=== PATIENT | female | born 1955 | race Caucasian/White ===

== ENCOUNTER → 2018-03-20 08:15 | Outpatient (CLI) | payer OTHER, SELFPAY ==
--- NOTE | 2018-03-20 08:18 | MM_ITS ---
MM Dig screening mamm BI w/CAD CAD Screening INDICATION: Screening for breast cancer ORDERING PHYSICIAN: Patel Romero PATIENT AGE: 63 years COMPARISON: 10/25/2016, 03/11/2015, 11/22/2013 TECHNIQUE: Standard CC and MLO images were obtained. R2 CAD reviewed. FINDINGS: Average fibroglandular tissue. No malignant mass or malignant appearing microcalcification. Benign-appearing calcifications are noted in the medial aspect of the left breast IMPRESSION: No change with no evidence of malignancy BI-RADS Category: 2 Benign Finding(s) RECOMMENDED FOLLOW-UP: 1YR - 1 YEAR FOLLOW-UP (A letter has been sent to the patient regarding results of the study.)
== END ==
PROVIDERS: Family Provider Family Medicine; PCP Family Medicine; Visit Provider Family Medicine
DX: Z12.31 Encounter for screening mammogram for malignant neoplasm of breast (principal)
CPT/HCPCS: 77067

== ENCOUNTER → 2019-04-25 16:41 | Outpatient (CLI) | payer OTHER, SELFPAY ==
--- NOTE | 2019-04-25 16:46 | MM_ITS ---
MM Dig screening mamm BI w/CAD CAD Screening COMPARISON: Digital mammograms with CAD 03/20/2018 and 10/25/2016 INDICATION: There is no personal or family history of breast cancer TECHNIQUE: Standard CC and MLO images were obtained. R2 CAD reviewed. FINDINGS: Scattered fibroglandular densities are seen throughout both breast on a background of fatty breast parenchyma. There is a mole marker left breast. There is benign-appearing calcification in each breast. There is no suspicious lesion and there are no suspicious microcalcifications. IMPRESSION: Fibrofatty parenchyma with no suspicious lesion seen BI-RADS Category: 2 Benign Finding(s) RECOMMENDED FOLLOW-UP: 1YR - 1 YEAR FOLLOW-UP (A letter has been sent to the patient regarding results of the study.)
== END ==
PROVIDERS: PCP Family Medicine; Referring Provider Family Medicine; Visit Provider Family Medicine
DX: Z12.31 Encounter for screening mammogram for malignant neoplasm of breast (principal)
CPT/HCPCS: 77067

== ENCOUNTER → 2019-07-10 15:12 | Outpatient (CLI) | payer OTHER, SELFPAY ==
--- NOTE | 2019-07-10 15:25 | US_ITS ---
PROCEDURE: US THYROID CLINICAL INDICATION: MASS Follow-up thyroid nodules COMPARISON: THY US THYROID from 10/28/2016 FINDINGS: Right lobe: 4 x 1.1 x 1.6 cm. 4 mm slightly hypoechoic nodules present in the mid aspect of the right lobe unchanged. 3 mm hypoechoic nodules nodule is present in the lower lobe on the right. 3 mm slightly hypoechoic nodules present in the lower pole near the isthmus unchanged. Prior left lobectomy Additional findings: IMPRESSION: Prior left thyroid lobectomy. There are 3 nodules on the right to which are unchanged. One nodule which appears cystic is new. These are low level of suspicion for malignancy. Dictated by: Matt Adhikari MD 07/10/2019 17:53 <Electronically signed by Matt Adhikari MD in [facility]> 07/10/2019 17:53
== END ==
PROVIDERS: PCP Family Medicine; Visit Provider Family Medicine
DX: E04.1 Nontoxic single thyroid nodule
CPT/HCPCS: 76536

== ENCOUNTER → 2020-08-21 16:42 | Outpatient (CLI) | payer OTHER, SELFPAY ==
--- NOTE | 2020-08-21 16:46 | MM_ITS ---
PROCEDURE: MM DIG SCREENING MAMM BI W/CAD Digital Breast Tomosynthesis Included CLINICAL INDICATION: SCREENING There is no personal or family history of breast cancer. Patient currently is on estrogen. COMPARISON: MG DMSB DIG MAMM-SCREEN MISSY from 10/25/2016 MG SCBI MM Dig screening mamm BI w/CAD from 03/20/2018 MG DIG MAMM-SCREEN MISSY from 04/25/2019 TECHNIQUE: Standard CC and MLO images and 3D Tomosynthesis was obtained. R2 CAD reviewed. FINDINGS: Scattered fibroglandular densities are seen throughout both breast and the findings are bilateral and symmetrical. There is a mole marker on each breast. There is a tiny benign-appearing calcification left breast likely vascular. There is no suspicious lesion in either breast and no suspicious microcalcifications. IMPRESSION: Fibrofatty parenchyma with no suspicious lesions seen BI-RAD Category: 2 Benign Finding(s) FOLLOW-UP: 1YR 1 Year Follow-up (A letter has been sent to the patient regarding results of the study.) Dictated by: Dr. Nick Mccallum MD 08/24/2020 12:04 Dr. Nick Mccallum MD in [facility] 08/24/2020 12:04
== END ==
PROVIDERS: PCP Family Medicine; Visit Provider Family Medicine
DX: Z12.31 Encounter for screening mammogram for malignant neoplasm of breast (principal)
CPT/HCPCS: 77063; 77067

== ENCOUNTER → 2021-09-29 10:42 | Outpatient (CLI) | payer OTHER, SELFPAY ==
--- NOTE | 2021-09-29 10:45 | MM_ITS ---
PROCEDURE INFORMATION: Exam: MG Bilateral Screening 3D Mammography Exam date and time: 09/29/2021 10:45 AM Age: 66 years old Clinical indication: Screening mammogram TECHNIQUE: Imaging protocol: Bilateral screening tomosynthesis and 2D mammography including computer-aided detection (CAD) when performed. COMPARISON: 1. MG MM DIG SCREENING MAMM BI W/CAD 08/21/2020 4:56 PM 2. MG DIG MAMM-SCREEN MISSY 04/25/2019 4:50 PM 3. MG SCBI MM Dig screening mamm BI w/CAD 03/20/2018 8:41 AM 4. MG DMSB DIG MAMM-SCREEN MISSY 10/25/2016 4:57 PM FINDINGS: MAMMOGRAPHY: Breast composition: There are scattered areas of fibroglandular density. Mass: None. Architectural distortion: No new or suspicious architectural distortion. Calcifications: No new or suspicious calcifications are present Asymmetric density: No new or suspicious asymmetric density is present Skin thickening: None. Axillary adenopathy: None. IMPRESSION: No mammographic evidence of malignancy. Recommend annual screening mammography unless otherwise clinically indicated. ASSESSMENT: BI-RADS category 1: Negative
== END ==
PROVIDERS: PCP Family Medicine; Visit Provider Family Medicine
DX: Z12.31 Encounter for screening mammogram for malignant neoplasm of breast (principal)
CPT/HCPCS: 77063; 77067

== ENCOUNTER → 2021-12-03 06:44 | Outpatient (CLI) | payer OTHER, SELFPAY ==
--- NOTE | 2021-12-03 06:45 | CA_ITS ---
APPROVED REPORT EXAM: Comprehensive 2D, Doppler, and color-flow Echocardiogram Mussel Opener: Hilda Garcia RVT Ht: 5 ft 2 in Wt: 161lbs BSA: 1.74 BP: 180/88 mmHg Indications: CP,ABN EKG 2D Dimensions LVOT 2.01 cm (M/F) 1.5-2.5 LA Volume 30.10 mL LA Volume Index 17.30 mL/m2 (M/F) 16-34 M-Mode Dimensions RVDd 2.16 cm (0.9-2.6) LA Diam 3.38 cm (1.9-4.0) LVDd 3.89 cm (3.5-5.7) Ao Diam 2.40 cm (2.0-3.7) LVDs 1.31 cm (3.5-5.7) IVSd 0.83 cm (0.6-1.1) PWd 0.58 cm (0.6-1.1) EF (Teich) 93.60% FS 66.30% EDV (Teich) 65.50 mL TAPSE 1.41 (<1.7) ESV (Teich) 4.20 mL LV Diastology E Decel Time 150.00 (160-240 msec) E/A Ratio 0.7 MED E' 4.70 (< 7 cm/sec) E'/MED E' Ratio 12.13 (>14) LAT E' 8.10 (<10 cm/sec) E/LAT E' Ratio 7.04 (>14) Mitral Valve MV E Max Bernabe. 57.00 (40-130 cm/s) MV A Velocity 78.00 (40-130 cm/s) E/A Ratio 0.73 MV Decel. Time 150.00 (160-240 ms) MV PHT 44.00 ms Pulmonary Valve PV Peak Velocity 88.00 (50-150 cm/s) Left Ventricle Left atrium is mildly enlarged, left ventricle is normal size, mild concentric left ventricular hypertrophy, visually estimated ejection fraction 55% with no regional wall motion abnormality, grade 1 diastolic dysfunction seen without tissue Doppler evidence of raise left atrial pressure. Right Ventricle Right atrium and right ventricle are normal size and contractility. Aortic Valve Aortic valve is minimally thickened and fibrosed, there is no aortic stenosis or aortic insufficiency. Mitral Valve Mitral valve grossly normal, there is trace mitral regurgitation. Tricuspid Valve Tricuspid grossly normal, there is trace tricuspid regurgitation, tricuspid regurgitation jet velocity is inadequate for calculation of the right ventricular systolic pressure. Pulmonic Valve Pulmonic valve is poorly visualized. Great Vessels Aortic root is normal size. Inferior vena cava is poorly visualized. Pericardium No significant pericardial effusion noted. Conclusion 1. Mildly enlarged left atrium, normal left ventricular size, mild concentric left ventricular hypertrophy, visually estimated ejection fraction 55% with no regional wall motion abnormality, grade 1 diastolic dysfunction seen without tissue Doppler evidence of raise left atrial pressure. 2. Trace mitral and tricuspid regurgitation. 3. No significant pericardial effusion noted. 4. Inferior vena cava is poorly visualized. Electronically signed by : Jairo Hester MD 12/03/2021 13:25:02
--- NOTE | 2021-12-03 06:45 | CA_ITS ---
APPROVED REPORT Exam: Exercise Treadmill Technologist: Luana Lopez, Ht: 5 ft 2 in Wt: 161 lbs BSA: 1.74 m2 HR: 72 bpm BP: 135/82 mmHg Medical History Medications: Levothyroxine,,,,, Estradiol,,,,, Stress Test Details Test: Javier HR Resting HR: 84 bpm Max Heart Rate (APMHR): 156 bpm Max HR Achieved: 161 bpm Target HR (85% APMHR): 133 bpm % of APMHR: 103 Recovery HR: 120 bpm BP Resting BP: 143/83 mmHg Max BP: 189/66 mmHg Recovery BP: 188.0/74.0 mmHg ECG Clinical Exercise duration: 07:31 min Highest Stage Achieved: Exercise capacity: 10.1 METs Stress ECG Conclusion During javier protocol pt experinced leg fatigue. No SOA or CP noted. PVCs noted. Test Summary RECOVERY 05:07 0.0 0.0 90 . 130/ 61 . . REST . . . . . . . Standing REST 12:36 0.0 0.0 84 . 143/ 83 . . Stage 1 01:00 10.0 1.7 93 . . . . Stage 1 02:00 10.0 1.7 108 . . . . Stage 1 03:00 10.0 1.7 119 . 145/ 83 . . Stage 2 01:00 12.0 2.5 130 . . . . Stage 2 02:00 12.0 2.5 142 . . . . Stage 2 03:00 12.0 2.5 154 . 151/ 90 . . Stage 3 01:00 14.0 3.4 160 . . . . Stage 3 01:31 14.0 3.4 160 . . . Stop exercise at 07:31 RECOVERY 01:00 0.0 0.0 139 . . . . RECOVERY 02:00 0.0 0.0 120 . 188/ 74 . . RECOVERY 03:00 0.0 0.0 92 . 188/ 74 . . RECOVERY 04:00 0.0 0.0 91 . 189/ 66 . . RECOVERY 05:00 0.0 0.0 86 . 130/ 61 . . RECOVERY 05:07 0.0 0.0 90 . 130/ 61 . . Electronically signed by : Jairo Hester MD 12/03/2021 13:10:25
--- NOTE | 2021-12-03 06:45 | NM_ITS ---
APPROVED REPORT Exam: Nuclear Stress Test Indication: chest pain..abn ekg Patient Location: Outpatient Stress Tech: Luana KINNEY Tech:Christin BeaversMEG RT(R)(N) Ht: 5 ft 5 in Wt: 150 lbs Bra Size: 36c HR: 72 bpm BP: 135/82 mmHg BSA: 1.75 m2 BMI: 24.9 History: chest pain..abn ekg Procedure: Patient exercised on Chris protocol 7:31 minutes and sec, resting heart rate 72 bpm, resting blood pressure 135/82 mmHg, with exercise maximum heart rate achived was 146 bpm which is 103 % of the maximum predicted heart rate and blood pressure was 151/90 mmHg. Patient denied any complaint of chest pain. Patient has good exercise capacity, achieved 10.1 METs of workload on treadmill, the blood pressure response to exercise was Adequate. Electrocardiogram Resting electrocardiogram showed sinus rhythm, with exercise there is less than 1.[address] segment depression noted from the baseline EKG. The EKG portion of the exercise Myoview is negative for ischemia. Cardiac Stress and Resting SPECT Images: Cardiac Stress and Resting SPECT images were obtained using technetium 99m Myoview 30.2 mCi stress and 10.17 mCi at rest. Gated SPECT for analysis of segmental wall motion and calculation of the ejection fraction also done. Prone images were also obtained. Cardiac stress and resting SPECT images show uniform myocardial activity without segmental perfusion abnormality, computer derived ejection fraction is 65% with no regional wall motion abnormality, right ventricle is normal size and contractility. Conclusion: 1. The EKG portion of the exercise Myoview is negative for ischemia, patient has good exercise capacity achieved 10.1 METs of workload on treadmill, the blood pressure response to exercise was adequate, there was no exercise-induced chest discomfort. 2. No scintigraphic evidence of reversible ischemia seen, computer derived ejection fraction 65% with no regional wall motion abnormality, right ventricle is normal size and contractility. 3. Normal exercise Myoview study. Electronically signed by : Jairo Hester MD 12/03/2021 13:12:40
== END ==
PROVIDERS: PCP Family Medicine; Visit Provider Nurse Practitioner Family
DX: R07.9 Chest pain, unspecified (principal); R94.31 Abnormal electrocardiogram [ECG] [EKG]
CPT/HCPCS: 78452; 93017; 93306; A9502

== ENCOUNTER → 2022-11-21 09:39 | Outpatient (CLI) | payer OTHER, SELFPAY ==
--- NOTE | 2022-11-21 09:42 | MM_ITS ---
PROCEDURE INFORMATION: Exam: MG Bilateral Screening 3D Mammography Exam date and time: 11/21/2022 9:50 AM Age: 67 years old Clinical indication: Screening mammogram TECHNIQUE: Imaging protocol: Bilateral Screening tomosynthesis and 2D mammography including computer-aided detection (CAD) when performed. COMPARISON: 1. MG MM DIG SCREENING MAMM BI W/CAD 09/29/2021 10:42 AM 2. MG MM DIG SCREENING MAMM BI W/CAD 08/21/2020 4:56 PM 3. MG DIG MAMM-SCREEN MISSY 04/25/2019 4:50 PM 4. MG SCBI MM Dig screening mamm BI w/CAD 03/20/2018 8:41 AM FINDINGS: MAMMOGRAPHY: Breast composition: There are scattered areas of fibroglandular density. Mass: None. Architectural distortion: No new or suspicious architectural distortion. Calcifications: No new or suspicious calcifications are present Asymmetric density: No new or suspicious asymmetric density is present Skin thickening: None. Axillary adenopathy: None. IMPRESSION: No mammographic evidence of malignancy. Recommend annual screening mammography unless otherwise clinically indicated. ASSESSMENT: BI-RADS category 1: Negative
== END ==
PROVIDERS: PCP Family Medicine; Visit Provider Family Medicine
DX: Z12.31 Encounter for screening mammogram for malignant neoplasm of breast (principal)
CPT/HCPCS: 77063; 77067

== ENCOUNTER 2024-03-08 07:42 | Outpatient (CLI) | payer MEDICARE, SELFPAY ==
--- NOTE | 2024-03-08 07:46 | MM_ITS ---
PROCEDURE INFORMATION: Exam: MG Bilateral Screening 3D Mammography Exam date and time: 03/08/2024 7:57 AM Age: 69 years old Clinical indication: Screening examination TECHNIQUE: Imaging protocol: Bilateral Screening tomosynthesis and 2D mammography including computer-aided detection (CAD) when performed. COMPARISON: 1. MG MM DIG SCREENING MAMM BI W/CAD 11/21/2022 9:50 AM 2. MG MM DIG SCREENING MAMM BI W/CAD 09/29/2021 10:42 AM FINDINGS: MAMMOGRAPHY: Breast composition: There are scattered areas of fibroglandular density. Mass: None. Architectural distortion: None. Calcifications: No suspicious calcifications. Asymmetric density: None. Skin thickening: None. Axillary adenopathy: None. IMPRESSION: No mammographic evidence of malignancy. Annual screening is recommended unless otherwise clinically indicated. ASSESSMENT: BI-RADS Category 1: Negative
== END 2024-03-08 23:59 | disposition home or self-care (01) ==
LOC: RAD 07:42
PROVIDERS: PCP Family Medicine; Visit Provider Family Medicine
DX: Z12.31 Encounter for screening mammogram for malignant neoplasm of breast (principal)
CPT/HCPCS: 77063; 77067

== ENCOUNTER 2025-03-12 15:09 | Outpatient (CLI) | payer MEDICARE, SELFPAY ==
--- NOTE | 2025-03-12 15:13 | MM_ITS ---
PROCEDURE INFORMATION: Exam: MG Bilateral Screening 3D Mammography Exam date and time: 03/12/2025 3:26 PM Age: 70 years old Clinical indication: Screening examination TECHNIQUE: Imaging protocol: Bilateral Screening tomosynthesis and 2D mammography including computer-aided detection (CAD) when performed. COMPARISON: 1. MG MM DIG SCREENING MAMM BI W/CAD 03/08/2024 7:57 AM 2. MG MM DIG SCREENING MAMM BI W/CAD 11/21/2022 9:50 AM FINDINGS: MAMMOGRAPHY: Breast composition: There are scattered areas of fibroglandular density. Mass: No suspicious masses. Architectural distortion: None. Calcifications: No suspicious calcifications. Asymmetric density: None. Skin thickening: None. Axillary adenopathy: None. IMPRESSION: No mammographic evidence of malignancy. Annual screening is recommended unless otherwise clinically indicated. ASSESSMENT: BI-RADS Category 1: Negative.
== END 2025-03-12 23:59 | disposition home or self-care (01) ==
LOC: RAD 15:10
PROVIDERS: PCP Family Medicine; Visit Provider Family Medicine
DX: Z12.31 Encounter for screening mammogram for malignant neoplasm of breast (principal)
CPT/HCPCS: 77063; 77067